=== PATIENT | male | born 1980 | race Caucasian/White ===

== ENCOUNTER 2020-09-08 07:25 | Emergency (ER) | payer SELFPAY ==
[~2020-09-08] VITALS: Ht 170.2 cm; Wt 88.0 kg
[2020-09-08 08:57] VITALS: BP 132/88
== END 2020-09-08 08:59 | disposition home or self-care (01) ==
LOC: ER 07:25
DX: L03.90 Cellulitis, unspecified (principal); R59.0 Localized enlarged lymph nodes; Z91.013 Allergy to seafood
CPT/HCPCS: 99281